=== PATIENT | male | born 1970 | race Caucasian/White ===

== ENCOUNTER 2016-04-08 10:50 | Observation (INO) | payer OTHER ==
[~2016-04-08] VITALS: Ht 185.4 cm; Wt 136.9 kg
[2016-04-08] VITALS (8 sets, daily range): BP systolic 107–164; BP diastolic 60–105; PULSE 54–67; RESP 12–18; O2SAT 96–100
[~2016-04-08 10:50] MED LIST: ALLO100T PO; AMPH20TA5 PO; CITA40TA PO; OMPR20CCR PO; SYN.1T2 PO
--- NOTE | 2016-04-08 11:02 | ED.REPORT ---
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 He also reports that the pain radiates into his back on the left side, and "clenching" neck and jaw pain while driving to the hospital today. Patient denies exacerbation or relief with any activities, family history of cardiac disease, and history of blood clots. He is a CCU nurse at the hospital here. Nursing Notes Stated Complaint: CHEST PAIN Chief Complaint: Chest Pain Nursing Notes Reviewed: Yes Allergies: Coded Allergies: No Known Drug Allergies (Verified Allergy, Unknown, 01/25/13) Scheduled Allopurinol-Expunged Drug, Do Not Renew! (Allopurinol-Expunged Drug, Do Not Renew!) 100 Mg Tablet 100 MG PO DAILY Citalopram-Expunged Drug, Do Not Renew! (Citalopram-Expunged Drug, Do Not Renew! ) 40 Mg Tablet 40 MG PO DAILY Levothyroxine-Expunged Drug, Do Not Renew! (Synthroid-Expunged Drug, Do Not Renew!) 100 Mcg Tablet 100 MCG PO DAILYAC 0.1 MG = 100 MCG Mixed Amphet-Expunged Drug, Do Not Renew! (Mixed Amphet-Expunged Drug, Do Not Renew!) 20 Mg Tablet 40 MG PO BID NO REFILLS ALLOWED Omeprazole-Expunged Drug, Do Not Renew! (Omeprazole-Expunged Drug, Do Not Renew! ) 20 Mg Capsule.dr 40 MG PO DAILY General Time Seen by MD: 11:01 Chief Complaint Chest pain Hx Obtained From: Patient Arrived By: Walk-in Sudden in Onset?: Yes Onset Occurred: 1 - 4 hours ago (10:15) Symptom Duration: Since onset Location: : Chest left Quality: Pressure ("crushing") Radiation: : Back: Jaw: Neck Severity: Current: Moderate Severity: Maximum: Moderate Pertinent Negative: Pt denies other symptoms Pertinent Negative: Exacerbated by nothing, Relieved by nothing Past Medical History Past Medical History Loren-Nino Syndrome Reports: Hyperlipidemia Smoking History Never Smoker Social History Other Social History: Good social support Ambulatory Status Independent Review of Systems Constitutional: Denies: Chills, Fever Respiratory: Denies: Non-productive cough, Shortness of breath Cardiovascular: Reports: Chest pain GI: Denies: Abdominal pain, Vomiting Musculoskeletal: Denies: Extremity pain, Extremity swelling Complete sys rev & neg: except as marked. Physical Exam Initial Vital Signs Vital Signs (First) Date Time Temp Pulse Resp B/P Pulse Ox O2 Delivery O2 Flow Rate FiO2 04/08/16 10:55 36.3 67 18 164/105 97 04/08/16 12:02 Nasal Cannula Initial VS: Reviewed Head / Eyes: Atraumatic, Normocephalic Neck: Supple, Non-tender, Full range of motion Extremities: Vascular intact, Neuro intact, No swelling, No tenderness Skin: Warm, Dry, No cyanosis Neurologic: Alert, Oriented, Nonfocal General/Constitutional: Awake, Alert, Well developed, Well nourished Appearance / Presentation: Positive: Obese Respiratory / Chest: Breath sounds NL, Breath sounds = bilat, No respiratory distress, No rales, No rhonchi, No wheezing, No stridor, No chest tenderness Cardiovascular: Heart rate NL, Regular rhythm, Heart sounds NL, No murmurs, Peripheral circulation NL, Pulses = bilaterally, No gross BP differential Good radial pulses. Abdomen: Soft, Non-tender, No guarding, No rebound, No distention Interpretation & Diagnostics Lab Results Interpretation Result Diagram: 04/08/16 1110 04/08/16 1110 Test 04/08/16 11:10 White Blood Count 9.9th/mm3 (3.8-10.1) Red Blood Count 4.83mil/mm3 (4.40-5.80) Hemoglobin 13.7g/dL (13.8-17.2) Hematocrit 41.4% (41.0-50.0) Mean Corpuscular Volume 85.7fL (81-100) Mean Corpuscular Hemoglobin 28.4pg (27.0-35.0) Mean Corpuscular Hemoglobin Concent 33.1% (32.0-37.0) Red Cell Distribution Width 14.7% (12.3-15.4) Platelet Count 298bil/L (150-400) Neutrophils (%) (Auto) 53.6% (40-74) Lymphocytes (%) (Auto) 31.3% (14-46) Monocytes (%) (Auto) 10.2% (4-12) Eosinophils (%) (Auto) 4.4% (0-5) Basophils (%) (Auto) 0.4% (0-3) D-Dimer < 0.5mg/L (<0.50) Sodium Level 139mEq/L (134-144) Potassium Level 4.1mEq/L (3.5-5.2) Chloride Level 102mEq/L (97-108) Carbon Dioxide Level 24mmol/L (18-29) Blood Urea Nitrogen 14mg/dL (6-24) Creatinine 1.21mg/dL (0.76-1.27) Estimat Glomerular Filtration Rate 69mL/min (>59) Glucose Level 92mg/dL (60-99) Calcium Level 9.1mg/dL (8.5-10.1) Magnesium Level 2.3mg/dL (1.6-2.6) Total Bilirubin 0.5mg/dL (0.0-1.2) Aspartate Amino Transf (AST/SGOT) 20U/L (0-50) Alanine Aminotransferase (ALT/SGPT) 19U/L (0-44) Alkaline Phosphatase 84U/L (25-150) Troponin T < 0.010ug/L (0.0-0.011) Total Protein 7.7g/dL (6.4-8.4) Albumin 4.0g/dL (3.4-5.0) Hold Blake Top Tube Received (Received) ECG Interpretation ECG Interpretation: Sinus rhythm Normal axis Normal intervals No ST segment changes Anteroseptal T wave inversions No prior ECG available for comparison Time: 11:08 Interpreted by: ED physician X-Ray Chest Interpretation Chest Xray Interpretation: IMPRESSION: Normal chest Dictated by: Mac Bejarano M.D. on 04/08/2016 at 11:22 Approved by: Mac Bejarano M.D. on 04/08/2016 at 11:23 View: Portable, 1 view Interpretation / Wet Read by: Interpret - Radiologist Re-Eval/Medical Decision Med Decision/Clinical Course In summary, the patient is a generally healthy 46-year-old male who presents to the emergency department with approximately 1 hour of crushing left sided substernal chest pain. He has no cardiac history. Upon arrival he is afebrile with stable vital signs and examination as above. Initial EKG demonstrates anterior T-wave inversions though there is no prior EKG available for comparison. Laboratory studies were notable as below: CBC unremarkable Chemistry unremarkable Troponin negative Patient was treated with the below medications ASA 324 mg by mouth Morphine NTG, sublingual Zofran The patient reported resolution of his chest pain with the above medications. I am reassured by initial negative troponin though T-wave inversions are concerning for possible ischemia. Given duration of chest pain I cannot rule out acute coronary syndrome at this time. The patient does not have any major risk factors. He does have some truncal obesity. Patient was discussed with cardiology as well as accepting hospitalist. He was transferred to the floor in stable condition with plan for additional cardiac risk stratification and serial troponin testing. Source of Hx: Old records Time of Eval: 11:47 Re-Evaluation/Progress Note: Discussed need for admission. Patient is amenable to the plan. Time of Eval: 12:41 Re-Evaluation/Progress Note: Discussed lab and radiology results and updated patient on the plan of care. Consultation #1: Referral / Consult Name: Ede Benoit DO Consulted With: Hospitalist Call Returned at: 12:18 [employer] Testing: Agrees with eval, Agrees with plan, Accepts admit Consultation #2: Consulted With: Cardiology Call Returned at: 12:18 Counseled Regarding: Diagnosis, Lab results, Need for admission Discharge & Departure Primary Impression: Chest pain Chest pain type: unspecified Qualified Code: R07.9 - Chest pain, unspecified Additional Impression: T wave inversion in EKG Disposition: ADMITTED TO HOSPITAL Discharge Condition All VS Reviewed: Yes Condition: Stable Referrals: Kinga Vasquez (PCP) Rosio Attestation Portions of this note were transcribed by Azar Yepez. I, Dr. Orourke, personally performed the history, physical exam and medical decision-making; I reviewed and confirmed the accuracy of the information in the transcribed note. Signed by: Rosio Rueda, 04/08/2016 and 12:42 copies to: Kinga Vasquez Beck O MD Apr 08, 2016 11:02 AZAR YEPEZ Apr 08, 2016 11:24
--- NOTE | 2016-04-08 11:24 | DRSVH ---
PROCEDURE: X-RAY CHEST ONE VIEW, PORTABLE ([id number]) INDICATIONS: pain TECHNIQUE: One view of the chest was acquired. COMPARISON: None. FINDINGS: Surgical changes and devices: None. Lungs and pleura: No pleural effusions or pneumothorax. Mild elevation right hemidiaphragm. Lungs ar e clear. Mediastinum: Mediastinal contours appear normal. Heart size is normal. Bones and chest wall: No suspicious bony lesions. Overlying soft tissues appear unremarkable. IMPRESSION: Normal chest Dictated by: Mac Bejarano M.D. on 04/08/2016 at 11:22 Approved by: Mac Bejarano M.D. on 04/08/2016 at 11:23
[2016-04-08 11:30] LABS: BASOPHILS % (AUTO) 0.4 % (0-3); EOSINOPHILS % (AUTO) 4.4 % (0-5); MONOCYTES % (AUTO) 10.2 % (4-12); Mean Corpuscular Hemoglobin 28.4 pg (27.0-35.0); Mean Corpuscular Volume 85.7 fL (81-100); NEUTROPHILS % (AUTO) 53.6 % (40-74); Platelet Count 298 bil/L (150-400)
[2016-04-08] MEDS ORDERED: Ondansetron 2 mg/mL 2 mL Inj IVPUSH ONE (11:50)
[2016-04-08 11:56] LABS: Magnesium 2.3 mg/dL (1.6-2.6)
[2016-04-08 12:07] LABS: TROPONIN T < 0.010 ug/L (0.0-0.011)
[2016-04-08] MEDS ORDERED: Polyethylene Glycol (PEG) 17 Gm Powder PO PRN (12:40)
[2016-04-08] MEDS ORDERED: Ondansetron 2 mg/mL 2 mL Inj IVPUSH PRN (12:40)
[2016-04-08] MEDS ORDERED: Alum-Mag Hydrox-Simeth 30 mL Suspension PO PRN (12:40)
[2016-04-08 13:33] LABS: Creatine Kinase 128 U/L (21-232)
[2016-04-08] MEDS ORDERED: COLC0.6T55 PO (14:44)
[2016-04-08] MEDS ORDERED: Atropine 1 mg/10 mL (Code) Syringe IVPUSH PRN (14:50)
[2016-04-08] MEDS ORDERED: Senna-Docusate 8.6-50 mg Tablet PO PRN (14:50)
[2016-04-08] MEDS ORDERED: CITA40TA13 PO (15:12)
[2016-04-08] MEDS ORDERED: ALLO300T2 PO (15:12)
[2016-04-08] MEDS ORDERED: LEVO100T6 PO (15:13)
[2016-04-08] MEDS ORDERED: OMEP40CA36 PO (15:16)
--- NOTE | 2016-04-08 15:18 | PCM.HPMED ---
Subjective Date of Service Apr 08, 2016 Primary Provider: Admitting Physician: Ede Benoit DO Primary Care Physician: Kinga Vasquez Attending Physician: Ede Benoit DO Chief Complaint: Chest pain History of Present Illness: Patient is a 46yom with MHx significant for obesity, sleep apnea, GERD, and Loren hewitt tear presents with left chest pain. Per patient, reports crushing, constant, 9/10 chest pain, radiating to the bilateral shoulder, unable to breath while in bed around 1000am today. Some dizziness, no lightheadedness, palpitation, or diaphoretic however. Pain slowly dissipate within 45min when he arrived at ED. Patient is fairly healthy at baseline. Denies any exertional chest pain. He was diagnosed with sleep apnea, but not on CPAP. He also admits to not being regular on his omeprazole. Denies any early cardiac deaths in the family. Review of Systems: A comprehensive review of systems was conducted with the patient and found to be negative except as above in the History of Present Illness. Allergies Coded Allergies: No Known Drug Allergies (Verified Allergy, Unknown, 01/25/13) Home Medications Per patient report Allopurinol 600mg BID citalopram 40mg daily colchicine 0.6mg prn levothyroxine 125mcg daily Adderall 40mg bid omeprazole 40mg BID PMH ADDHD GERD Loren hweitt tear Gout Hypothyroidism Depression Sleep apnea Surgical History Right Knee meniscal repair Family History Father ETOH No family hx of early cardiac related in the family Social History Hx Alcohol Use: Yes (occ) Hx Substance Use: No Hx Tobacco Use: No Smoking Status: Never Smoker Living Arrangement: with Family Exam Vital Signs Vital Sign - Last Date Time Temp Pulse Resp B/P Pulse Ox O2 Delivery O2 Flow Rate FiO2 04/08/16 14:21 36.6 54 18 124/79 97 Room Air 04/08/16 13:46 2 Exam Gen: Lying comfortably at 30degree head tilt HEENT: PERRLA, Anicteric sclerae, moist conjunctivae, and no lid lag. Neck: supple, no JVD Cardio: Regular rate and rhythm with no murmurs, rubs, or gallops appreciated Pulm: b/l air sound, no crackles, wheezes, or rhonchi. Normal respiratory effort with no use of accessory muscles. Abd: positive bowel tone. Soft, nontender, nondistended. Extremities: No clubbing, cyanosis, edema, or lymphadenopathy appreciated. Skin: Normal temperature, turgor, and texture; no rash, ulcers, or subcutaneous nodules appreciated. Neuro: Cranial nerves grossly intact. moving equally on all four limbs. Psyc: Normal mood and affect. AoX3 Lab and Diagnostics Result Diagram: 04/08/16 1110 04/08/16 1110 X-Rays, CTs and MRIs PROCEDURE: X-RAY CHEST ONE VIEW, PORTABLE INDICATIONS: pain IMPRESSION: Normal chest Dictated by: Mac Bejarano M.D. on 04/08/2016 at 11:22 12-lead ECG EKG with normal sinus, inverted Twave on Lead V1-4 Assessment & Plan Patient is a 46yom with MHx significant for obesity, sleep apnea, GERD, and Loren hewitt tear presented with left chest pain, admitted for ACS r/o. ACS, present on admission, active -- EKG with inverted T-wave. unremarkable Crx, D-dimer negative -- non-anginal chest pain from history. likely GERD related. Though, still carries a 13% risk -- placed on aspirin. consider Trever-I with hypertension. no betablocade. patient bradycardic. -- Echo pending -- Troponin, lipids, TSH pending Hypothyroidism, present on admission, ongoing -- TSH pending -- restarted home levothyroxine ROHAN, present on admission, ongoing -- monitor HR/O2 sat -- CPAP should patient desat, bradycardic Hypertension, present on admission, active -- hypertensive on admission. -- may start trever-i should BP trend upward. Chronic stable GERD: ppi Depression: citalopram DVT prophylaxis: heparin subQ Antipyretic: Acetaminophen PRN Antinausea: Ondansetron PRN Bowel regiment PRN Patient is admitted under observation status with expected length of stay LESS than 2 midnights due to severity of presenting symptoms, risk of adverse event, and complexity of treatment plan. GI Prophylaxis: Proton Pump Inhibitor VTE Prophylaxis: Sub-Q Heparin (Unfractionated) Resuscitation Status: CPR: Attempt Resuscitation Time spent 50 minutes Attending Statement I have seen and evaluated patient in addition to directly supervising care provided by resident. I agree with above documentation. Though pt had few risk factors, given echocardiogram results, cardiac stress testing will be pursued. Rajiv Eagel DO Apr 08, 2016 15:18 Ede Benoit DO Apr 09, 2016 07:54
[2016-04-08] MEDS ORDERED: DEXT20TA8 PO (15:20)
--- NOTE | 2016-04-08 15:31 | NUR ---
Admit Pt admitted from ED to [facility] room 3030, report received from Patience Starkey RN. Pt was able to transfer self to bed, steady gait observed. Denies CP and SOB. A/O x 3, VSS, pt is hard of hearing, awaiting hearing aides from home.
[2016-04-08] MEDS: Heparin 5,000 Unit/mL Inj SUBQ SCH (17:41)
[2016-04-08] MEDS: Pantoprazole 20 mg ER24 Tablet PO SCH ×2 (17:50→20:30)
--- NOTE | 2016-04-08 18:20 | DRSVH ---
[facility] [address] [place] [address] Echocardiogram Report Name: JOSEFINA ANDRADE SStudy Date: 04/08/2016 Height: 73 in Hospital Exam Location: [facility] Weight: 300 lb Gender: Male BSA: 2.6 m2 : 1970 Age: 46 yrs BP: 141/84 mmHg Ordering Physician: Performed By: Jose Weeks Referring Physician: KAT STOVALL Interpretation Summary Left ventricular wall thickness is borderline increased. The ejection fraction is estimated to be 60-65%. There is possible very mild hypokinesis in the area of the inferior wall. Consider ischemic workup if not highly suspicious for angina. The right ventricle is normal in size, thickness and function. Right ventricular systolic pressure is estimated to be 19 mmHg plus the clinically estimated CVP which cannot be estimated on this exam. Both atria are normal in size. There is no significant valvular heart disease. The ascending aorta is mildly enlarged. Procedure: A two-dimensional transthoracic echocardiogram with color flow and Doppler was performed. The study quality was technically adequate. A contrast injection of Definity was performed to improve assessment of LV function. There is no prior echocardiogram noted for this patient. The patient was in sinus bradycardia with heart rates between 52-72 bpm during the exam. Left Ventricle: The left ventricle is normal in size. Left ventricular wall thickness is borderline increased. The ejection fraction is estimated to be 60-65%. There is possible very mild hypokinesis in the area of the inferior wall. Consider ischemic workup if not highly suspicious for angina. Assessment of diastolic parameters indicates normal left ventricular diastolic function and normal filling pressures. Right Ventricle: The right ventricle is normal in size, thickness and function. Atria: Both atria are normal in size. The interatrial septum is intact with no evidence for an atrial septal defect. Mitral Valve: The mitral valve is normal. There is trace mitral regurgitation. Aortic Valve: The aortic valve is normal in structure and function. No aortic regurgitation is present. Tricuspid Valve: The tricuspid valve is normal. There is a trace or physiologic amount of tricuspid regurgitation. Right ventricular systolic pressure is estimated to be 19 mmHg plus the clinically estimated CVP which cannot be estimated on this exam. Pulmonic Valve: The pulmonic valve leaflets are thin and pliable; valve motion is normal. There is a trace or physiologic amount of pulmonic regurgitation. There is no significant valvular heart disease. Great Vessels: The aortic root is normal size. The ascending aorta is mildly enlarged. The pulmonary artery is normal size. The inferior vena cava was not well visualized. Pericardium/ Pleura There is no pericardial effusion. There is no pleural effusion. MMode/2D Measurements & Calculations LVIDd: 5.3 cm RA long axis LVOT diam: 2.4 cm LVIDs: 4.0 cm LA A2 area: 18.7 cm AoV Opening FS: 24.3 % LA A4 area: 25.9 cm RA area EPSS: 0.50 cm LA length (vol) Ao root diam IVSd: 1.1 cm : 17.1 cm LVPWd: 0.99 cm LA vol: 70.9 ml RA vol asc Aorta Diam LA vol index : 43.6 ml RA Ao Arch Diam (Prox : 27.7 ml/m2 : 17.1 mm2 Trans): 2.9 cm LV brown. diameter/BSA LV sys. diameter/BSA RVD1 (basal) TAPSE: 2.6 cm (cm/m^2): 2.1 (cm/m^2): 1.6 Doppler Measurements & Calculations Ao V2 max MV E max faisal MV E/A: 1.1 TR max faisal : 151.7 cm/sec : 90.1 cm/sec Med Peak E' Faisal : 218.5 cm/sec Ao max P.2 mmHg MV A max faisal TR max PG Ao mean P.1 mmHg : 81.3 cm/sec E/E' med: 12.6 : 19.1 mmHg LVOT Max Faisal Lat Peak E' Faisal PA V2 max : 125.0 cm/sec : 98.6 cm/sec E/E' lat: 8.2 PA mean PG SACHIN(I,D): 3.8 cm E/e' average : 2.1 mmHg sev ratio: 0.85 MV dec time: 0.22 sec Ao V2 mean LV V1 max PG PA V2 mean : 107.6 cm/sec : 70.2 cm/sec Ao V2 VTI: 30.4 cmLV V1 VTI: 25.9 cm PA pr(Accel) : 47.4 mmHg SACHIN(V,D): 3.6 cm2 SACHIN indexed to BSA (cm^2/m^2): 1.5 Reading Physician:PM
[2016-04-09] MEDS: Heparin 5,000 Unit/mL Inj SUBQ SCH ×2 (01:21→07:57)
[2016-04-09 01:23] VITALS: BP 102/65; PULSE 55; RESP 18; O2SAT 97
[2016-04-09 05:21] VITALS: BP 111/70; PULSE 57; RESP 18; O2SAT 98
[2016-04-09 06:48] LABS: Mean Corpuscular Hemoglobin 28.4 pg (27.0-35.0); Mean Corpuscular Volume 85.8 fL (81-100)
[2016-04-09] MEDS: Pantoprazole 20 mg ER24 Tablet PO SCH (07:56)
--- NOTE | 2016-04-09 09:32 | NUR ---
OFF Floor Pt off floor for stress test.
--- NOTE | 2016-04-09 11:00 | PCM.DIMED ---
Rajiv Eagle DO 04/09/16 1100: Discharge Instructions Date of Service Apr 09, 2016 Dates of Hospitalization Apr 08, 2016 at 12:49 Discharge Diagnosis Discharge Diagnosis ACS, present on admission, stable Hypothyroidism, present on admission, ongoing ROHAN, present on admission, ongoing Hypertension, present on admission, active Chronic stable GERD: ppi Depression: citalopram Diet Heart Healthy Activity Home Health Phyical Therapy Call your provider Chest pain, Weakness (unilateral) Patient Instructions For your stay, you were admitted for ACS ruled out based on EKG findings (Twave inversion) and symptoms. Troponin were negative. However, Echocardiogram possible inferior wall motion abnormality. Therefore, we are risk stratifying you. Stressed testing unremarkable. Acute coronary syndrome, present on admission, stable -- Recommend that you take a statin and baby aspirin daily -- Weight lost will reduce your risks of heart disease -- Portion control, limit your Mountain Dew Hypothyroidism, present on admission, ongoing -- Your T4 are on the low end of normal -- Please take your medication as scheduled ROHAN, present on admission, ongoing -- Recommend that you see a sleep specialist to possibly CPAP. --This can reduce your weight lost Mild normocytic anemia, present on admission, ongoing --possibly related to your hemorrhoids, vs other causes. GI being the most worrisome --recommend that you have this work-up outpatient GERD, present on admission, ongoing --Please continue your proton pump inhibitor Follow-up Provider: Kinga Vasquez Follow-up with PCP in: 1 week dEe Benoit DO 04/09/16 1450: Discharge Instructions Attending's Statement I have reviewed resident physician's documentation and agree with above. Rajiv Eagle DO Apr 09, 2016 11:00 Ede Benoit DO Apr 09, 2016 14:50
--- NOTE | 2016-04-09 11:24 | NUR ---
Social Work-screening: Data:EMR Reviewed. Pt is a 46 y/o male who was admitted on 04/08/16 for chest pain per H&P. Pt's insurance is [employer] and PCP is DAVID Lester. EMR reviewed. Pt resides at home where he remains independent with ADLS. Pt has been up independent in his room. Pt to have stress test today, if negative pt to discharge home today. No anticipated discharge needs. SW will continue to follow if needs arise. Assessment:Pt who is independent at baseline. Plan:Pt to discharge home when medically stable via POV. No anticipated discharge needs. SW will continue to follow if needs arise. SRINIVASAN Delgado
[2016-04-09 12:40] VITALS: BP 115/72; PULSE 64; RESP 18; O2SAT 97
--- NOTE | 2016-04-09 14:02 | DRSVH ---
PROCEDURE: 1 DAY PHARMACOLOGICAL STRESS TEST Rest and pharmacological stress myocardial perfusion SPECT with gated imaging and ejection fraction RADIOPHARMACEUTICAL: 14.8 mCi Tc-99m tetrafosmin IV at rest and 46.1 mCi Tc-99m tetrafosmin IV at pea k effect of pharmacological stress. A [id number] was performed. INDICATIONS: 46-year-old man with chest pain. TECHNIQUE: Radiopharmaceutical was injected at peak stress test, and also at rest. SPECT images wer e obtained. SPECT myocardial perfusion images were displayed in short axis, horizontal long axis, an d vertical long axis views. Gated images were reviewed using [employer] software. COMPARISON: None. CARDIAC STRESS: A pharmacologic stress test was performed under the supervision of an attending staff, using an infus ion of Lexiscan. Hemodynamic data: There is normal blood pressure and heart rate response to pharmacologic stress. Symptoms: The patient developed left-side chest pain, 6/10 in severity, improved after Aminophyllin. Aminophylline: 100 mg EKG: No diagnostic changes of ischemia; no ectopy. FINDINGS: Raw data: There is good myocardial uptake of radiotracer. No significant motion artifacts. Left ventricle function: Gated images demonstrate normal left ventricular wall thickening. No segme ntal wall motion abnormalities. No transient ischemic dilation. Left ventricle resting end diastoli c volume is normal. Left ventricle stress ejection fraction is 65%; normal range is above 45%. Myocardial perfusion: There is a small, mild/moderate severe, fixed perfusion defect in the apex, mo st likely normal apical thinning. There is otherwise normal distribution of activity in the right and left ventricular myocardium. No reversible perfusion defects to suggest myocardial ischemia. IMPRESSION: 1. Probably normal myocardial perfusion images. 2. A small, mild to moderately severe, fixed defect in the apex is most likely caused by apical thinn ing. A small myocardial infarction is felt less likely. 3. Normal left ventricular volume and systolic function. 4. The patient expressed chest pain during Lexiscan infusion. Chest pain with resolved after Aminophy llin reversal. No diagnostic EKG changes for ischemia. PQRS ATTESTATIONS: Measure 322 - Is this imaging test primarily performed on a low-risk surgery patient for preoperative evaluation within 30 days preceding their low-risk non-cardiac surgery? Low-risk surgery is defined as cardiac or myocardial infarction less than 1%, including (but not limited to) endoscopic pr ocedures, superficial procedures, cataract surgery, and excisional breast surgery: Answer: No Measure 323 - Is this imaging test performed primarily for the monitoring of an asymptomatic patient who had percutaneous coronary intervention on the visit date or within 2 years of the visit date? An swer: No Measure 324 - Is this imaging test performed primarily for the initial detection and risk assessment on an asymptomatic, low coronary heart disease patient? Low CHD risk definition = clinicians should consider the maximum number of available patient factors used to estimate risk based on [place] (A TP III criteria), typically age, gender, diabetes, smoking status, and use of blood pressure medicati on, and integrate age appropriate estimates for missing elements, such as LDL or standard blood press ure. Answer: No Dictated by: Luis Sam M.D. on 04/09/2016 at 13:52 Approved by: Luis Sam M.D. on 04/09/2016 at 14:01
--- NOTE | 2016-04-09 15:10 | NUR ---
Social Work-discharge: Data:EMR reviewed. Pt is on day 1 of hospitalization for chest pain. Pt is medically stable to discharge home today. Pt has been up independent in his room. No anticipated discharge needs. SW will continue to follow if needs arise. Assessment:Pt who is independent at baseline. Plan:Pt to discharge home when medically stable via POV. No anticipated discharge needs. SW will continue to follow if needs arise. SRINIVASAN Delgado
[2016-04-09] MEDS ORDERED: TRAM-14 PO (15:56)
--- NOTE | 2016-04-09 16:02 | NUR ---
Discharge Pt discharged to home with girlfriend via private vehicle. Pt verbalized understanding of discharge instructions, personal belongings accounted for and left with pt.
--- NOTE | 2016-04-09 18:27 | PCM.DC.MED ---
Discharge Summary Date of Service Apr 09, 2016 Dates of Hospitalization Date of Hospital Admission Apr 08, 2016 at 12:49 Date of Discharge: Apr 09, 2016 Providers: Admitting Physician: Ede Benoit DO Primary Care Physician: Kinga Vasquez Attending Physician: Ede Benoit DO Diagnosis at Time of Discharge Diagnosis at Time of Discharge ACS, present on admission, stable Hypothyroidism, present on admission, ongoing ROHAN, present on admission, ongoing Hypertension, present on admission, active Mild normocytic anemia, present on admission, ongoing Chronic stable GERD: ppi Depression: citalopram Procedures XRay, CTs & MRIs PROCEDURE: X-RAY CHEST ONE VIEW, PORTABLE INDICATIONS: pain IMPRESSION: Normal chest Interpretation Summary Left ventricular wall thickness is borderline increased. The ejection fraction is estimated to be 60-65%. There is possible very mild hypokinesis in the area of the inferior wall. Consider ischemic workup if not highly suspicious for angina. The right ventricle is normal in size, thickness and function. Right ventricular systolic pressure is estimated to be 19 mmHg plus the clinically estimated CVP which cannot be estimated on this exam. Both atria are normal in size. There is no significant valvular heart disease. The ascending aorta is mildly enlarged. Patient Name: JOSEFINA ANDRADE MR#: [id number] Location: [facility] Ordering Phys: Rajiv Eagle DO Date of Service: 04/09/16 0641 PROCEDURE: 1 DAY PHARMACOLOGICAL STRESS TEST Rest and pharmacological stress myocardial perfusion SPECT with gated imaging and ejection fraction RADIOPHARMACEUTICAL: 14.8 mCi Tc-99m tetrafosmin IV at rest and 46.1 mCi Tc-99m tetrafosmin IV at peak effect of pharmacological stress. A vss-ewo-aumzkvau was performed. INDICATIONS: 46-year-old man with chest pain. TECHNIQUE: Radiopharmaceutical was injected at peak stress test, and also at rest. SPECT images were obtained. SPECT myocardial perfusion images were displayed in short axis, horizontal long axis, and vertical long axis views. Gated images were reviewed using [employer] software. COMPARISON: None. CARDIAC STRESS: A pharmacologic stress test was performed under the supervision of an attending staff, using an infusion of Lexiscan. Hemodynamic data: There is normal blood pressure and heart rate response to pharmacologic stress. Symptoms: The patient developed left-side chest pain, 6/10 in severity, improved after Aminophyllin. Aminophylline: 100 mg EKG: No diagnostic changes of ischemia; no ectopy. FINDINGS: Raw data: There is good myocardial uptake of radiotracer. No significant motion artifacts. Left ventricle function: Gated images demonstrate normal left ventricular wall thickening. No segmental wall motion abnormalities. No transient ischemic dilation. Left ventricle resting end diastolic volume is normal. Left ventricle stress ejection fraction is 65%; normal range is above 45%. Myocardial perfusion: There is a small, mild/moderate severe, fixed perfusion defect in the apex, most likely normal apical thinning. There is otherwise normal distribution of activity in the right and left ventricular myocardium. No reversible perfusion defects to suggest myocardial ischemia. IMPRESSION: 1. Probably normal myocardial perfusion images. 2. A small, mild to moderately severe, fixed defect in the apex is most likely caused by apical thinning. A small myocardial infarction is felt less likely. 3. Normal left ventricular volume and systolic function. 4. The patient expressed chest pain during Lexiscan infusion. Chest pain with resolved after Aminophyllin reversal. No diagnostic EKG changes for ischemia. PQRS ATTESTATIONS: Measure 322 - Is this imaging test primarily performed on a low-risk surgery patient for preoperative evaluation within 30 days preceding their low-risk non- cardiac surgery? Low-risk surgery is defined as cardiac or myocardial infarction less than 1%, including (but not limited to) endoscopic procedures, superficial procedures, cataract surgery, and excisional breast surgery: Answer : No Measure 323 - Is this imaging test performed primarily for the monitoring of an asymptomatic patient who had percutaneous coronary intervention on the visit date or within 2 years of the visit date? Answer: No Measure 324 - Is this imaging test performed primarily for the initial detection and risk assessment on an asymptomatic, low coronary heart disease patient? Low CHD risk definition = clinicians should consider the maximum number of available patient factors used to estimate risk based on Huntington ( ATP III criteria), typically age, gender, diabetes, smoking status, and use of blood pressure medication, and integrate age appropriate estimates for missing elements, such as LDL or standard blood pressure. Answer: No Dictated by: Luis Sam M.D. on 04/09/2016 at 13:52 ECG 12 Lead EKG with normal sinus, inverted Twave on Lead V1-4 Other Diagnostics PROCEDURE: 1 DAY PHARMACOLOGICAL STRESS TEST Rest and pharmacological stress myocardial perfusion SPECT with gated imaging and ejection fraction RADIOPHARMACEUTICAL: 14.8 mCi Tc-99m tetrafosmin IV at rest and 46.1 mCi Tc-99m tetrafosmin IV at peak effect of pharmacological stress. A rzp-coa-otyhlzkt was performed. INDICATIONS: 46-year-old man with chest pain. TECHNIQUE: Radiopharmaceutical was injected at peak stress test, and also at rest. SPECT images were obtained. SPECT myocardial perfusion images were displayed in short axis, horizontal long axis, and vertical long axis views. Gated images were reviewed using [employer] software. COMPARISON: None. CARDIAC STRESS: A pharmacologic stress test was performed under the supervision of an attending staff, using an infusion of Lexiscan. Hemodynamic data: There is normal blood pressure and heart rate response to pharmacologic stress. Symptoms: The patient developed left-side chest pain, 6/10 in severity, improved after Aminophyllin. Aminophylline: 100 mg EKG: No diagnostic changes of ischemia; no ectopy. FINDINGS: Raw data: There is good myocardial uptake of radiotracer. No significant motion artifacts. Left ventricle function: Gated images demonstrate normal left ventricular wall thickening. No segmental wall motion abnormalities. No transient ischemic dilation. Left ventricle resting end diastolic volume is normal. Left ventricle stress ejection fraction is 65%; normal range is above 45%. Myocardial perfusion: There is a small, mild/moderate severe, fixed perfusion defect in the apex, most likely normal apical thinning. There is otherwise normal distribution of activity in the right and left ventricular myocardium. No reversible perfusion defects to suggest myocardial ischemia. IMPRESSION: 1. Probably normal myocardial perfusion images. 2. A small, mild to moderately severe, fixed defect in the apex is most likely caused by apical thinning. A small myocardial infarction is felt less likely. 3. Normal left ventricular volume and systolic function. 4. The patient expressed chest pain during Lexiscan infusion. Chest pain with resolved after Aminophyllin reversal. No diagnostic EKG changes for ischemia. Brief History Patient is a 46yom with MHx significant for obesity, sleep apnea, GERD, and Loren hewitt tear presents with left chest pain. Per patient, reports crushing, constant, 9/10 chest pain, radiating to the bilateral shoulder, unable to breath while in bed around 1000am today. Some dizziness, no lightheadedness, palpitation, or diaphoretic however. Pain slowly dissipate within 45min when he arrived at ED. Patient is fairly healthy at baseline. Denies any exertional chest pain. He was diagnosed with sleep apnea, but not on CPAP. He also admits to not being regular on his omeprazole. Denies any early cardiac deaths in the family. Hospital Course Patient is a 46yom with MHx significant for obesity, sleep apnea, GERD, and Loren hewitt tear presented with left chest pain, admitted for ACS ruled out based on EKG findings (Twave inversion) and symptoms. Troponin were negative. However, Echocardiogram possible inferior wall motion abnormality. Therefore, we stratify. Stressed testing unremarkable. ACS, present on admission, active -- EKG with inverted T-wave. unremarkable Crx, D-dimer negative -- non-anginal chest pain from history. likely GERD related. Though, still carries a 13% risk -- placed on aspirin. consider Trever-I with hypertension. no betablocade. patient bradycardic. -- Echo mild hypokinese of inferior wall, prompted NM stress testing, which demonstrated no perfusion defects. -- Recommend that patient lose weight. No need for statin at this time based on AHA. Hypothyroidism, present on admission, ongoing -- TSH/T4 3.65/0.94, non-compliance to medication -- restarted home levothyroxine ROHAN, present on admission, ongoing -- monitor HR/O2 sat -- CPAP should patient desat, bradycardic -- Recommend sleep study. Hypertension, present on admission, active -- hypertensive on admission. -- may start trever-i should BP trend upward. Chronic stable GERD: ppi Depression: citalopram Exam Vital Signs (Last) Date Time Temp Pulse Resp B/P Pulse Ox O2 Delivery O2 Flow Rate FiO2 04/09/16 12:40 36.8 64 18 115/72 97 Room Air 04/08/16 13:46 2 Test 04/08/16 11:10 04/08/16 23:01 04/09/16 05:55 Neutrophils (%) (Auto) 53.6% (40-74) Lymphocytes (%) (Auto) 31.3% (14-46) Monocytes (%) (Auto) 10.2% (4-12) Eosinophils (%) (Auto) 4.4% (0-5) Basophils (%) (Auto) 0.4% (0-3) D-Dimer < 0.5mg/L (<0.50) Hemoglobin A1c 6.3% (4.8-5.6) Magnesium Level 2.3mg/dL (1.6-2.6) Total Bilirubin 0.5mg/dL (0.0-1.2) Aspartate Amino Transf (AST/SGOT) 20U/L (0-50) Alanine Aminotransferase (ALT/SGPT) 19U/L (0-44) Alkaline Phosphatase 84U/L (25-150) Total Creatine Kinase 128U/L (21-232) Creatine Kinase MB 1.2ng/mL (0.0-10.4) Creatine Kinase MB % % (0.0-5.0) Total Protein 7.7g/dL (6.4-8.4) Albumin 4.0g/dL (3.4-5.0) Hold Blake Top Tube Received (Received) Troponin T < 0.010ug/L (0.0-0.011) White Blood Count 8.5th/mm3 (3.8-10.1) Red Blood Count 4.64mil/mm3 (4.40-5.80) Hemoglobin 13.2g/dL (13.8-17.2) Hematocrit 39.8% (41.0-50.0) Mean Corpuscular Volume 85.8fL (81-100) Mean Corpuscular Hemoglobin 28.4pg (27.0-35.0) Mean Corpuscular Hemoglobin Concent 33.2% (32.0-37.0) Red Cell Distribution Width 14.4% (12.3-15.4) Platelet Count 270bil/L (150-400) Sodium Level 141mEq/L (134-144) Potassium Level 4.4mEq/L (3.5-5.2) Chloride Level 102mEq/L (97-108) Carbon Dioxide Level 28mmol/L (18-29) Blood Urea Nitrogen 12mg/dL (6-24) Creatinine 1.25mg/dL (0.76-1.27) Estimat Glomerular Filtration Rate 67mL/min (>59) Glucose Level 102mg/dL (60-99) Calcium Level 8.9mg/dL (8.5-10.1) Triglycerides Level 116mg/dL (0-149) Cholesterol Level 143mg/dL (100-199) LDL Cholesterol, Calculated 89.800mg/dL (0-99) VLDL Cholesterol 23.200mg/dL HDL Cholesterol 30mg/dL (>39) Cholesterol/HDL Ratio 4.77 (0.0-4.4) Thyroid Stimulating Hormone (TSH) 3.650uIU/mL (0.450-4.500) Free Thyroxine 0.94ng/dL (0.82-1.77) Discharge Medications Discharge Medications Allopurinol (Allopurinol) 300 Mg Tablet 600 MG PO BID (Reported) Citalopram (Citalopram) 40 Mg Tablet 40 MG PO DAILY (Reported) Dextroamphetamine/Amphetamine (Amphetamine Mixed Salts) 20 Mg Tablet 40 MG PO BID (Reported) Levothyroxine (Levothyroxine) 100 Mcg Tablet 100 MCG PO dailyac (Reported) Omeprazole (Omeprazole) 40 Mg Capsule.dr 40 MG PO BID (Reported) As needed Colchicine (Colchicine) 0.6 Mg Tablet 0.6 MG PO PRN gout outbreak (Reported) Tramadol (Ultram) 50 Mg Tablet 50 MG PO Q4H PRN PRN For Mild Pain Prescribed by: EDE BENOIT,DO Followup Plan Discharge Diet: Heart Healthy Discharge Activity: Home Health Phyical Therapy Patient Instructions For your stay, you were admitted for ACS ruled out based on EKG findings (Twave inversion) and symptoms. Troponin were negative. However, Echocardiogram possible inferior wall motion abnormality. Therefore, we are risk stratifying you. Stressed testing unremarkable. Acute coronary syndrome, present on admission, stable -- Recommend that you take a statin and baby aspirin daily -- Weight lost will reduce your risks of heart disease -- Portion control, limit your Mountain Dew Hypothyroidism, present on admission, ongoing -- Your T4 are on the low end of normal -- Please take your medication as scheduled ROHAN, present on admission, ongoing -- Recommend that you see a sleep specialist to possibly CPAP. --This can reduce your weight lost Mild normocytic anemia, present on admission, ongoing --possibly related to your hemorrhoids, vs other causes. GI being the most worrisome --recommend that you have this work-up outpatient GERD, present on admission, ongoing --Please continue your proton pump inhibitor Follow-up Provider: Kinga Vasquez Follow-up with PCP in: 1 week Time spent 50 minutes Attending Statement I have seen and evaluated patient at bedside, in addition to directly supervising care provided by resident physician. I agree with above documentation. Though it was not felt formal in patient cardilogy consultation indicated based on study results, case was reviewed with firer diesel locomotive mine environmental engineer , Dr Christie. She felt given no evidence of ACS or reversible ischemia, DC home certainly prudent , but also agreed to close FU with patient once DC'd to review condition and consider more chronic underlying conditions maybe effecting heart, especially should episodes of chest pains not resolve. She will out reach patient for scheduling likely early next week. copies to: Kinga Vasquez Phuc H DO Apr 09, 2016 18:27 Ede Benoit DO Apr 10, 2016 07:58
[2016-06-03] MEDS ORDERED: LEVO125T2 PO (17:47)
[2016-06-03] MEDS ORDERED: AMPH20TA5 PO (17:47)
[2016-06-03] MEDS ORDERED: WARF4TAB6 PO (17:47)
== END 2016-04-09 16:06 | disposition home or self-care (01) ==
LOC: SED 11:14 → MPC 12:49
PROVIDERS: ADMIT Family Medicine; ATTEND Family Medicine
DX: I24.9 Acute ischemic heart disease, unspecified (principal); E03.9 Hypothyroidism, unspecified; G47.33 Obstructive sleep apnea (adult) (pediatric); I10 Essential (primary) hypertension; D64.9 Anemia, unspecified; K21.9 Gastro-esophageal reflux disease without esophagitis; F32.9 Major depressive disorder, single episode, unspecified; E66.9 Obesity, unspecified; F90.9 Attention-deficit hyperactivity disorder, unspecified type; M10.9 Gout, unspecified; E78.5 Hyperlipidemia, unspecified
CPT/HCPCS: 36415; 71010; 78452; 80048; 80053; 80061; 82550; 82553; 83036; 83735; 84439; 84443; 84484; 85025; 85027; 85379; 93005; 93017; 96374; 96375; 99285; A9502; C8929; G0378; J0280; J1644; J2270; J2405; J2785; Q9957

== ENCOUNTER 2016-04-30 07:26 | Emergency (ER) | payer OTHER ==
[~2016-04-30] VITALS: Ht 185.4 cm; Wt 136.8 kg
[~2016-04-30 07:26] MED LIST changes: -ALLO100T PO; +ALLO300T2 PO; -AMPH20TA5 PO; -CITA40TA PO; +CITA40TA13 PO; +COLC0.6T55 PO; +DEXT20TA8 PO; +LEVO100T6 PO; +OMEP40CA36 PO; -OMPR20CCR PO; -SYN.1T2 PO; +TRAM-14 PO
[2016-04-30 07:35] VITALS: BP 133/99; PULSE 146; RESP 18; O2SAT 100
--- NOTE | 2016-04-30 08:09 | ED.REPORT ---
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 He woke up this morning at 0645 with a racing heart rate, chest pressure and noticed his chest "fluttering." He describes that he tried to test his pulse but it was very weak. He denies SOB. He was recently seen at [facility] with severe chest pain, had an echocardiogram and a MIBI that revealed no acute ischemia. 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 Nursing Notes Stated Complaint: POUNDING IN CHEST Chief Complaint: Chest Pain Nursing Notes Reviewed: Yes Allergies: Coded Allergies: No Known Drug Allergies (Verified Allergy, Unknown, 01/25/13) Scheduled Allopurinol (Allopurinol) 300 Mg Tablet 600 MG PO BID Citalopram (Citalopram) 40 Mg Tablet 40 MG PO DAILY Dextroamphetamine/Amphetamine (Amphetamine Mixed Salts) 20 Mg Tablet 40 MG PO BID Levothyroxine (Levothyroxine) 100 Mcg Tablet 100 MCG PO dailyac Omeprazole (Omeprazole) 40 Mg Capsule.dr 40 MG PO BID Scheduled PRN Colchicine (Colchicine) 0.6 Mg Tablet 0.6 MG PO PRN gout outbreak Tramadol (Ultram) 50 Mg Tablet 50 MG PO Q4H PRN PRN For Mild Pain General Time Seen by MD: 07:50 Chief Complaint Chest pain Hx Obtained From: Patient Arrived By: Walk-in Sudden in Onset?: Yes Onset Occurred: Just prior to arrival Symptom Duration: Since onset Location: : Chest left Radiation: : Does not radiate Severity: Current: Mild Recent Healthcare: Recent doctor visit Similar Sx Previous: Yes Past Medical History Past Medical History Loren-Nino Syndrome Reports: Hyperlipidemia Past Surgical History denies Smoking History Never Smoker Social History CC nurse at [employer] Other Social History: Good social support Ambulatory Status Independent Review of Systems Respiratory: Denies: Shortness of breath Cardiovascular: Reports: Chest pain Complete sys rev & neg: except as marked. Physical Exam Initial Vital Signs Vital Signs (First) Date Time Temp Pulse Resp B/P Pulse Ox O2 Delivery O2 Flow Rate FiO2 04/30/16 07:35 36.8 146 18 133/99 100 Room Air Initial VS: Reviewed Head / Eyes: Atraumatic, Normocephalic, PERRL ENT: Mucous membranes moist, Conjunctiva normal, No scleral icterus Neck: Supple, Non-tender, Full range of motion Back: No CVA tenderness Extremities: Vascular intact, Neuro intact, No swelling, No tenderness Skin: Warm, Dry, No cyanosis Neurologic: Alert, Oriented, Nonfocal Psychiatric: Mood/affect normal, Behavior normal, Normal thought content General/Constitutional: Awake, Alert, No acute distress, Well appearing Appearance / Presentation: Positive: Obese well profused Respiratory / Chest: Atraumatic, Breath sounds NL, Breath sounds = bilat, No respiratory distress, No rales, No rhonchi, No wheezing, No retractions Cardiovascular: No gallop, No murmurs, No rubs atrial flutter Abdomen: Atraumatic, Soft, Non-tender, No guarding, No rebound, BS normoactive Interpretation & Diagnostics Lab Results Interpretation Result Diagram: 04/30/16 0815 04/30/16 0815 Test 04/30/16 08:15 White Blood Count 8.5th/mm3 (3.8-10.1) Red Blood Count 5.13mil/mm3 (4.40-5.80) Hemoglobin 14.6g/dL (13.8-17.2) Hematocrit 43.2% (41.0-50.0) Mean Corpuscular Volume 84.2fL (81-100) Mean Corpuscular Hemoglobin 28.5pg (27.0-35.0) Mean Corpuscular Hemoglobin Concent 33.8% (32.0-37.0) Red Cell Distribution Width 14.7% (12.3-15.4) Platelet Count 299bil/L (150-400) Neutrophils (%) (Auto) 48.9% (40-74) Lymphocytes (%) (Auto) 32.4% (14-46) Monocytes (%) (Auto) 9.3% (4-12) Eosinophils (%) (Auto) 8.2% (0-5) Basophils (%) (Auto) 0.7% (0-3) Sodium Level 139mEq/L (134-144) Potassium Level 4.5mEq/L (3.5-5.2) Chloride Level 101mEq/L (97-108) Carbon Dioxide Level 25mmol/L (18-29) Blood Urea Nitrogen 13mg/dL (6-24) Creatinine 1.13mg/dL (0.76-1.27) Estimat Glomerular Filtration Rate 75mL/min (>59) Glucose Level 133mg/dL (60-99) Calcium Level 8.8mg/dL (8.5-10.1) Magnesium Level 1.9mg/dL (1.6-2.6) Total Bilirubin 0.3mg/dL (0.0-1.2) Aspartate Amino Transf (AST/SGOT) 18U/L (0-50) Alanine Aminotransferase (ALT/SGPT) 22U/L (0-44) Alkaline Phosphatase 86U/L (25-150) Troponin T 0.010ug/L (0.0-0.011) Total Protein 7.0g/dL (6.4-8.4) Albumin 3.8g/dL (3.4-5.0) Hold Blake Top Tube Received (Received) ECG Interpretation ECG Interpretation: atrial flutter Time: 07:43 Interpreted by: ED physician Rhythm / Conduction: Tachycardia (147) ECG Interpretation: post cardioversion Time: 12:05 Interpreted by: ED physician Normal ECG Interpretation: Normal sinus rhythm (76) X-Ray Chest Interpretation Chest Xray Interpretation: IMPRESSION: No acute cardiopulmonary disease. Dictated by: Doe Jennings RRA Interpreted: Mitchell Brown MD on 04/30/2016 at 10:16 Transcribed by: ADELAIDA on 04/30/2016 at 10:16 View: Portable Interpretation / Wet Read by: Interpret - Radiologist Procedures Electrical Cardioversion Time: 12:00 Procedure Performed by: ED physician Indication: Atrial fibrillation Consent / Setup / Site Prep: Informed consent provided, Consent from patient Procedural Sedation/Analgesia: Sedation: Propofol Joules: 50 Procedure Successful: Yes Post-Procedure Rhythm: Normal sinus rhythm Post-Procedure / Complications: No complications, Condition improved, Tolerated procedure well, Patient stable Proced Mod Sedation/Analgesia Time: 12:00 Procedure Performed by: ED physician Sedation Time: 10 - 15 min Consent / Setup: Informed consent provided, Consent from patient Indication: Other (cardioversion) Preparation: monitoring engineer applied, Pulse oximeter applied, Constant attendance, IV access established, Eval last meal time, Supplemental oxygen, Procedure explained, Suction available, End tidal CO2 mon applied VS Prior to Procedure: O2 saturation normal, Blood pressure normal, Respiratory rate normal Mallampati: Class & Anatomy: 2 top tonsil/uvula/palate Airway Exam: Normal facial anatomy, Difficult neck anatomy CVS/Resp Exam: Normal breath sounds Neuro Exam: Alert Sedation: Sedation: Propofol ASA Classification: 2 mild systemic disease Response During Procedure: Handled secretions adeq, Maintained airway well, Oxygenation stable, Sedation appropriate, Vital signs stable Complications During/After: None Reversal: None required Mental Status After Procedure: Alert, Oriented X3 Post-Procedure: Alert prior to discharge Attestation: I performed procedure, I performed sedation Re-Eval/Medical Decision Med Decision/Clinical Course 46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 That up to go to the bathroom and noted the fluttering around 6 AM. Head significant chest pain 3 weeks ago follow-up echocardiogram with some inferior dyskinesis and nuclear medicine stress test that did not suggest acute ischemia were done. Rate was in the 150 range 6 mg of adenosine was used to confirm flutter waves. Care was reviewed with cardiology. Decision made to proceed with cardioversion. 120 mg subcutaneous Lovenox is given informed consent is obtained. With total of 80 mg of propofol and a single 50 mg J shock was converted to sinus rhythm. Stable on discharge. Recommended daily aspirin. Will follow up with Dr. Weldon. Return for recurrent symptoms. Time of Eval: 11:03 Patient Status: Condition unchanged Re-Evaluation/Progress Note: Pt rechecked. All labs look normal. Plan to consult with cardiology. Time of Eval: 11:56 Patient Status: Condition unchanged Re-Evaluation/Progress Note: Pt is sedated and shocked. Propohal sedation for cardioversion. Started at 40 with propophol. Pt responded to procedure well. Time of Eval: 12:36 Patient Status: Condition improved Re-Evaluation/Progress Note: Pt is now awake, tolerated the procedure well and all symptoms are resolved. He requests lunch and will be discharged. F/U and RTER warnings given. All questions addressed. Consultation : Referral / Consult Name: Lee De Paz MD Consulted With: Cardiology Call Returned at: 11:32 Supervisor Shuttle Fitting: Agrees with eval, Agrees with plan Note: Agreed with plan to shock patient. Will administer dose of Lovenox. Counseled Regarding: Diagnosis, Lab results, Need for follow-up, When/why to return to ED Discharge & Departure Primary Impression: Atrial flutter Disposition: Home Discharge Condition All VS Reviewed: Yes Condition: Stable Additional Instructions: the initial blood work up was unremarkable today. Your cardioversion today was successful at 50J and a single shock. Please make an appointment with Dr. Christie in the next couple weeks for follow up care. I recommend a daily dose of aspirin. Please return to the Emergency Department if you experience any new or worsening symptoms. 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 Referrals: Kinga Vasquez (PCP) Crit Care Except Billable Proc Time Spent: 30-74 minutes Services Performed: Patient management by me, Time spent at bedside, Reviewing test results, Reviewing imaging, Discussing patient care, Documentation in record, Time with fam/surrogate Scribe Attestation Portion of this note were transcribed by Chichi Farr. I, Dr. Hilliard, personally performed the history, physical exam, and medical decision-making: I reviewed and confirmed the accuracy for the information in the transcribed note. Signed by: irvin Merino, 04/30/16 1300 copies to: Kinga Vasquez Shawna L MD Apr 30, 2016 08:09 CHICHI FARR Apr 30, 2016 11:03
[2016-04-30 08:22] LABS: BASOPHILS % (AUTO) 0.7 % (0-3); EOSINOPHILS % (AUTO) 8.2 % (0-5); MONOCYTES % (AUTO) 9.3 % (4-12); Mean Corpuscular Hemoglobin 28.5 pg (27.0-35.0); Mean Corpuscular Volume 84.2 fL (81-100); NEUTROPHILS % (AUTO) 48.9 % (40-74); Platelet Count 299 bil/L (150-400)
[2016-04-30 08:43] LABS: TROPONIN T 0.01 ug/L (0.0-0.011)
[2016-04-30 08:55] LABS: Magnesium 1.9 mg/dL (1.6-2.6)
[2016-04-30 09:07] VITALS: BP 122/77; PULSE 146; RESP 16; O2SAT 98
--- NOTE | 2016-04-30 10:17 | DRSVH ---
PROCEDURE: X-RAY CHEST ONE VIEW, PORTABLE ([id number]) INDICATIONS: CHEST PAIN TECHNIQUE: One view of the chest was acquired. COMPARISON: [facility], CR, XR CHEST 1VW (PORTABLE), 04/08/2016, 11:01. FINDINGS: Surgical changes and devices: None. Lungs and pleura: No pleural effusions or pneumothorax. Lungs are clear. Mediastinum: Mediastinal contours appear normal. Heart size is normal. Bones and chest wall: No suspicious bony lesions. Overlying soft tissues appear unremarkable. IMPRESSION: No acute cardiopulmonary disease. Dictated by: Doe Jennings [facility] Interpreted: Mitchell Brown MD on 04/30/2016 at 10:16 Transcribed by: ADELAIDA on 04/30/2016 at 10:16 Approved by: Mitchell Brown M.D. on 04/30/2016 at 17:46
[2016-04-30] MEDS ORDERED: Adenosine 3 mg/mL 2 mL Inj IVPUSH ONE ×2 (10:40)
[2016-04-30 11:08] VITALS: BP 114/76; PULSE 145; RESP 24; O2SAT 99
[2016-04-30] MEDS ORDERED: Propofol 10 mg/mL 20 mL Inj IVPUSH ONE (11:35)
[2016-04-30 11:57] VITALS: BP 131/71; PULSE 147; RESP 17; O2SAT 99
[2016-04-30 12:15] VITALS: BP 131/98; PULSE 75; RESP 14; O2SAT 98
[2016-04-30] MEDS ORDERED: Adenosine 3 mg/mL 2 mL Inj ONE (12:46)
[2016-04-30] MEDS ORDERED: Propofol 10 mg/mL 20 mL Inj ONE (12:47)
[2016-04-30 13:43] VITALS: BP 120/86; PULSE 77; RESP 18; O2SAT 98
[2016-06-03] MEDS ORDERED: WARF4TAB6 PO (17:47)
[2016-06-03] MEDS ORDERED: LEVO125T2 PO (17:47)
[2016-06-03] MEDS ORDERED: AMPH20TA5 PO (17:47)
== END 2016-04-30 13:54 | disposition home or self-care (01) ==
LOC: SED 07:26
DX: I48.92 Unspecified atrial flutter (principal); E78.5 Hyperlipidemia, unspecified
CPT/HCPCS: 36415; 71010; 80053; 83735; 84484; 85025; 92960; 93005; 94799; 96372; 96374; 99291; J0153; J1650

== ENCOUNTER 2016-05-18 16:00 | Emergency (ER) | payer OTHER ==
[~2016-05-18] VITALS: Ht 185.4 cm; Wt 136.8 kg
[2016-05-18 16:05] VITALS: BP 113/69; PULSE 154; RESP 28; O2SAT 99
[2016-05-18 16:31] LABS: BASOPHILS % (AUTO) 0.6 % (0-3); EOSINOPHILS % (AUTO) 5.6 % (0-5); MONOCYTES % (AUTO) 8.9 % (4-12); Mean Corpuscular Hemoglobin 28.7 pg (27.0-35.0); Mean Corpuscular Volume 84.7 fL (81-100); NEUTROPHILS % (AUTO) 51.2 % (40-74); Platelet Count 352 bil/L (150-400)
--- NOTE | 2016-05-18 16:43 | ED.REPORT ---
HPI-Chest Pain 40 and Over Date of Service May 18, 2016 ED Provider: Marty Peoples MD Pt is a 46 year old male with a hx of Afib presenting to the ED complaining of chest pain and a rapid heart rate onset at 1900 last night when he stood up. Associated symptoms include left arm, neck, shoulder, and jaw pain and diaphoresis. He also reports that at 1430 today after taking a nap the shoulder and neck aching began. He states that he has had similar symptoms like this once before. Denies nausea. Pt was cardioverted one time, on April 30, 2016. Nursing Notes Stated Complaint: CHEST PAIN, RAPID HEART RATE Chief Complaint: Chest Pain Nursing Notes Reviewed: Yes Allergies: Coded Allergies: No Known Drug Allergies (Verified Allergy, Unknown, 05/18/16) Scheduled Allopurinol (Allopurinol) 300 Mg Tablet 600 MG PO BID Citalopram (Citalopram) 40 Mg Tablet 40 MG PO DAILY Dextroamphetamine/Amphetamine (Amphetamine Mixed Salts) 20 Mg Tablet 40 MG PO BID Levothyroxine (Levothyroxine) 100 Mcg Tablet 100 MCG PO dailyac Omeprazole (Omeprazole) 40 Mg Capsule.dr 40 MG PO BID Rivaroxaban (Xarelto) 15 Mg Tablet 15 MG PO DAILY Scheduled PRN Colchicine (Colchicine) 0.6 Mg Tablet 0.6 MG PO PRN gout outbreak Tramadol (Ultram) 50 Mg Tablet 50 MG PO Q4H PRN PRN For Mild Pain General Time Seen by MD: 16:41 Chief Complaint Chest pain Hx Obtained From: Patient Arrived By: Walk-in Sudden in Onset?: Yes Onset Occurred: Yesterday Symptom Duration: Since onset Location: : Chest left: Jaw: Neck: Shoulder left Quality: Aching, Painful Severity: Current: Moderate Severity: Maximum: Moderate Recent Healthcare: No recent hospitalization, Recent doctor visit Similar Sx Previous: Yes Past Medical History Past Medical History Loren-Nino Syndrome Atrial flutter Reports: Hyperlipidemia Past Surgical History denies Smoking History Never Smoker Social History CC nurse at [employer] Alcohol Use: Denies alcohol use Drug Use: Denies drug use Other Social History: Good social support Ambulatory Status Independent Review of Systems Cardiovascular: Reports: Chest pain, Palpitations GI: Denies: Nausea Musculoskeletal: Reports: Joint pain, Neck pain Skin: Reports Diaphoresis Complete sys rev & neg: except as marked. Physical Exam Initial Vital Signs Vital Signs (First) Date Time Temp Pulse Resp B/P Pulse Ox O2 Delivery O2 Flow Rate FiO2 05/18/16 16:05 36.7 154 28 113/69 99 Room Air Initial VS: Reviewed Head / Eyes: Atraumatic, Normocephalic, PERRL ENT: Mucous membranes moist, Conjunctiva normal, No scleral icterus Neck: Supple, Non-tender, Full range of motion Extremities: Vascular intact, Neuro intact, No swelling, No tenderness Skin: Warm, Dry, No cyanosis Neurologic: Alert, Oriented, Nonfocal Psychiatric: Mood/affect normal, Behavior normal, Normal thought content General/Constitutional: Awake, Alert, No acute distress, Well appearing Respiratory / Chest: Breath sounds NL, Breath sounds = bilat, No respiratory distress, No rales, No rhonchi, No wheezing, No stridor, No chest tenderness Cardiovascular: Regular rhythm, Heart sounds NL Heart Rate / Rhythm: Positive: Tachycardia Heart rate consistently in the 150s. Abdomen: Atraumatic, Soft, Non-tender Interpretation & Diagnostics Lab Results Interpretation Result Diagram: 05/18/16 1621 05/18/16 1621 Test 05/18/16 16:21 White Blood Count 9.0th/mm3 (3.8-10.1) Red Blood Count 5.30mil/mm3 (4.40-5.80) Hemoglobin 15.2g/dL (13.8-17.2) Hematocrit 44.9% (41.0-50.0) Mean Corpuscular Volume 84.7fL (81-100) Mean Corpuscular Hemoglobin 28.7pg (27.0-35.0) Mean Corpuscular Hemoglobin Concent 33.9% (32.0-37.0) Red Cell Distribution Width 14.8% (12.3-15.4) Platelet Count 352bil/L (150-400) Neutrophils (%) (Auto) 51.2% (40-74) Lymphocytes (%) (Auto) 33.3% (14-46) Monocytes (%) (Auto) 8.9% (4-12) Eosinophils (%) (Auto) 5.6% (0-5) Basophils (%) (Auto) 0.6% (0-3) Sodium Level 140mEq/L (134-144) Potassium Level 4.3mEq/L (3.5-5.2) Chloride Level 101mEq/L (97-108) Carbon Dioxide Level 24mmol/L (18-29) Blood Urea Nitrogen 11mg/dL (6-24) Creatinine 1.34mg/dL (0.76-1.27) Estimat Glomerular Filtration Rate 62mL/min (>59) Glucose Level 142mg/dL (60-99) Calcium Level 9.0mg/dL (8.5-10.1) Magnesium Level 2.2mg/dL (1.6-2.6) Total Bilirubin 0.6mg/dL (0.0-1.2) Aspartate Amino Transf (AST/SGOT) 18U/L (0-50) Alanine Aminotransferase (ALT/SGPT) 18U/L (0-44) Alkaline Phosphatase 93U/L (25-150) Troponin T < 0.010ug/L (0.0-0.011) Total Protein 7.2g/dL (6.4-8.4) Albumin 3.8g/dL (3.4-5.0) ECG Interpretation ECG Interpretation: Atrial flutter with 2:[address] depressions. Time: 16:12 Interpreted by: ED physician X-Ray Chest Interpretation Chest Xray Interpretation: IMPRESSION: No acute cardiopulmonary findings. Dictated by: Kimmie Jordan M.D. on 05/18/2016 at 17:11 View: Portable, 1 view Interpretation / Wet Read by: Interpret - Radiologist Procedures Electrical Cardioversion Electrical Cardioversion: First shock 50 J. Synchronized extra shock, 100 J. Time: 17:33 Procedure Performed by: ED physician Indication: Atrial flutter Consent / Setup / Site Prep: Consent from patient, Time-out performed, Placed on oxygen, Placed on pulse oximeter, Place on environmental monitoring specialist, Hand hygiene observed, Stand sterile technique Procedural Sedation/Analgesia: Sedation: Propofol Joules: 50, 100 Post-Procedure Rhythm: Normal sinus rhythm Post-Procedure / Complications: No complications, Condition improved, Tolerated procedure well, Patient stable Proced Mod Sedation/Analgesia Time: 17:33 Procedure Performed by: ED physician Sedation Time: 10 - 15 min (12) Consent / Setup: Consent from patient, Time-out performed, Hand hygiene observed, Stand sterile technique, Position supine Indication: Other (Cardioversion) Preparation: alarm security or surveillance monitor applied, Pulse oximeter applied, Constant attendance, IV access established, Supplemental oxygen, Procedure explained, Suction available, End tidal CO2 mon applied Airway Exam: Normal facial anatomy CVS/Resp Exam: Normal breath sounds Neuro Exam: Alert, No acute distress, Responsive Sedation: Sedation: Propofol ASA Classification: 1 normal healthy patient Response During Procedure: Handled secretions adeq, Maintained airway well, Oxygenation stable, Sedation appropriate, Vital signs stable Attestation: I performed procedure, I performed sedation Re-Eval/Medical Decision Time of Eval: 17:11 Patient Status: Condition improved Re-Evaluation/Progress Note: Discussed plan to consult with Dr. Manzanares about cardioversion. Time of Eval: 17:20 Patient Status: Condition improved Re-Evaluation/Progress Note: Patient agrees with plan for cardioversion. Time of Eval: 17:23 Patient Status: Condition improved Re-Evaluation/Progress Note: Pt consents to the cardioversion. Risks and benefits explained. Time of Eval: 17:33 Patient Status: Condition improved Re-Evaluation/Progress Note: Cardioversion performed. Pt tolerated procedure well. Time of Eval: 17:46 Patient Status: Condition improved Re-Evaluation/Progress Note: Pt awake from the Propofol. Condition improved. Pt now in normal sinus rhythm and states that all of his symptoms have resolved. Consultation : Referral / Consult Name: Ej Manzanares MD Consulted With: Cardiology Call Returned at: 17:12 Note: Cardiovert him and put him on Xarelto or another anticoagulant afterwards. Follow up with cardiology. Counseled Regarding: Diagnosis, Lab results, Need for follow-up, When/why to return to ED Discharge & Departure Primary Impression: Atrial flutter Atrial flutter type: unspecified Qualified Code: I48.92 - Unspecified atrial flutter Disposition: Home Discharge Condition All VS Reviewed: Yes Condition: Improved Patient Instructions: Atrial Flutter (ED) Additional Instructions: We had to shock you twice to get your heart back into a normal rhythm. You required only 80 mg of propofol. You received Lovenox today but tomorrow you should start taking another anticoagulant. Dr. Manzanares recommended that you take this for at least a month. I prescribed Xarelto 15 mg daily. If there is any trouble getting this medication, call your doctor's office tomorrow for a replacement. You can also call us tomorrow here at the ER. If your symptoms recur, please return to the emergency department. Follow-up with Dr. Wise in the coming 1-2 weeks. Referrals: Kinga Vasquez (PCP) Jose Torres MD Attestation Portions of this note were transcribed by Sharyn Clark. I, Dr. Peoples personally performed the history, physical exam and medical decision-making; I reviewed and confirmed the accuracy of the information in the transcribed note. Signed by: Rosio Perkins, 05/18/2016 and [id number]. copies to: Jose Torres MD; Kinga Vaqsuez Kirk H MD May 18, 2016 16:42 SHARYN CLARK May 18, 2016 16:50
[2016-05-18] MEDS ORDERED: Diltiazem 5 mg/mL 5 mL Inj IVPUSH ONE (16:50)
[2016-05-18 17:08] LABS: TROPONIN T < 0.010 ug/L (0.0-0.011)
--- NOTE | 2016-05-18 17:13 | DRSVH ---
PROCEDURE: X-RAY CHEST ONE VIEW, PORTABLE ([id number]) INDICATIONS: CHEST PAIN TECHNIQUE: One view of the chest was acquired. COMPARISON: None. FINDINGS: Surgical changes and devices: None. Lungs and pleura: No pleural effusions or pneumothorax. Lungs are clear. Mediastinum: Mediastinal contours appear normal. Heart size is normal. Bones and chest wall: No suspicious bony lesions. Overlying soft tissues appear unremarkable. IMPRESSION: No acute cardiopulmonary findings. Dictated by: Kimmie Jordan M.D. on 05/18/2016 at 17:11 Approved by: Kimmie Jordan M.D. on 05/18/2016 at 17:11
[2016-05-18 17:16] LABS: Magnesium 2.2 mg/dL (1.6-2.6)
[2016-05-18 17:19] VITALS: BP 100/79; PULSE 150; RESP 16; O2SAT 97
[2016-05-18] MEDS ORDERED: Propofol 10 mg/mL 20 mL Inj IVPUSH ONE (17:20)
[2016-05-18] MEDS ORDERED: RIVA15TA PO (17:31)
[2016-05-18 18:28] VITALS: BP 108/72; PULSE 68; RESP 11; O2SAT 97
[2016-06-03] MEDS ORDERED: LEVO125T2 PO (17:47)
[2016-06-03] MEDS ORDERED: AMPH20TA5 PO (17:47)
[2016-06-03] MEDS ORDERED: WARF4TAB6 PO (17:47)
== END 2016-05-18 18:56 | disposition home or self-care (01) ==
LOC: SED 16:00
DX: I48.92 Unspecified atrial flutter (principal); E78.5 Hyperlipidemia, unspecified; Z86.79 Personal history of other diseases of the circulatory system
CPT/HCPCS: 36415; 71010; 80053; 83735; 84484; 85025; 92960; 93005; 96372; 96374; 96375; 99285; J1650

== ENCOUNTER 2016-06-04 00:59 | Day surgery (SDC) | payer OTHER ==
[~2016-06-04] VITALS: Ht 185.4 cm; Wt 138.3 kg
[2016-06-04] VITALS (12 sets, daily range): BP systolic 113–142; BP diastolic 67–85; PULSE 53–67; RESP 13–19; O2SAT 89–97
[~2016-06-04 00:59] MED LIST changes: +AMPH20TA5 PO; -DEXT20TA8 PO; -LEVO100T6 PO; +LEVO125T2 PO; -OMEP40CA36 PO; -TRAM-14 PO; +WARF4TAB6 PO
[2016-06-04] MEDS ORDERED: Rocuronium 10 mg/mL 5 mL Inj ONE (01:00)
[2016-06-04] MEDS ORDERED: Glycopyrrolate 0.2 MG/ML 1mL Inj ONE (01:00)
[2016-06-04] MEDS ORDERED: Dexamethasone 4 mg/mL Inj ONE (01:00)
[2016-06-04] MEDS ORDERED: Succinylcholine Chloride 20 mg/mL 5 mL Inj ONE (01:00)
[2016-06-04] MEDS ORDERED: Propofol 10,000 mCg/mL 20 mL Inj ONE (01:00)
[2016-06-04] MEDS ORDERED: MetoCLOpramide 5 mg/mL 2 mL Inj ONE (01:00)
[2016-06-04] MEDS ORDERED: Neostigmine 1 mg/mL 10 mL Inj ONE (01:00)
[2016-06-04] MEDS ORDERED: Ondansetron 2 mg/mL 2 mL Inj ONE (01:00)
[2016-06-04] MEDS ORDERED: fentaNYL-PF 50 mCg/mL 2 mL Inj ONE (01:00)
[2016-06-04] MEDS ORDERED: Lactated Ringer's 1,000 ML IV SCH ×2 (05:00→07:51)
[2016-06-04] MEDS ORDERED: 0.9% Sodium Chloride 1,000 ML IV SCH (06:10)
[2016-06-04 06:51] LABS: BASOPHILS % (AUTO) 0.3 % (0-3); EOSINOPHILS % (AUTO) 3.1 % (0-5); MONOCYTES % (AUTO) 6.9 % (4-12); Mean Corpuscular Hemoglobin 28.8 pg (27.0-35.0); Mean Corpuscular Volume 85.2 fL (81-100); NEUTROPHILS % (AUTO) 62.7 % (40-74); Platelet Count 318 bil/L (150-400)
[2016-06-04 07:09] LABS: INR 1.18 ratio
[2016-06-04] MEDS ORDERED: Lactated Ringer's 500 ML IV PRN (07:51)
--- NOTE | 2016-06-04 07:51 | PCM.HPANE ---
Patient Data Surgeon Admitting Provider: Attending Provider:Jose Torres MD Primary Care Physician:Kinga Vasquez Other Provider:Alex Randolph Anesthesia Reason for Visit Unspecified Atrial Flutter Ht/WT & BMI Height (Feet): 6 Height (Inches): 1.00 Weight (Kilograms): 138.300 Body Mass Index 40.41 Allergies Coded Allergies: No Known Drug Allergies (Verified Allergy, Unknown, 05/18/16) Past Anesthesia History Anesthesia History: Denies:: Abnormal Airway, Anesthesia Reactions, Difficult Intubation, Fam Anesthesia Reaction, Fam Malignant Hypertherm, Malignant Hyperthermia Diabetes History Hx Diabetes?: No MRSA MRSA: No Medications Reported Medications Warfarin Sodium 4 Mg Tablet4 Mg PO DAILY 30 Days Ref 0 06/03/16 Levothyroxine (Synthroid)125 Mcg [id number] Mcg PO DAILY Ref 0 06/03/16 Amphet Asp/Amphet/D-Amphet (Adderall)20 Mg Szrzbg50 Mg PO DAILY Ref 0 06/03/16 Citalopram 40 Mg Tmyylw53 Mg PO DAILY 30 Days Ref 0 04/08/16 Allopurinol 300 Mg Gvqmgw805 Mg PO BID Ref 0 04/08/16 Colchicine 0.6 Mg Tablet0.6 Mg PO PRN gout outbreak 04/08/16 Discontinued Reported Medications Dextroamphetamine/Amphetamine (Amphetamine Mixed Salts)20 Mg Cvnfnd06 Mg PO BID Ref 0 04/08/16 Omeprazole 40 Mg Capsule.dr40 Mg PO BID Ref 0 04/08/16 Levothyroxine 100 Mcg Qwbdnp251 Mcg PO dailyac For Thyroid Replacement Ref 0 04/08/16 Discontinued Scripts Rivaroxaban (Xarelto)15 Mg Hjpucc30 Mg PO DAILY #30 TABLET Prov:Marty Peoples MD 05/18/16 Tramadol (Ultram)50 Mg Gbrmpm93 Mg PO Q4H PRN For Mild Pain #10 TABLET Prov:Ede Benoit DO 04/09/16 History History of ENT Problems?: No HEENT History: Positive for:: Dysphagia Denies:: Abnormal Airway Difficult Intubation Hearing Problem Denture Type: Partial- Upper Hx of Heart Problems?: Yes Cardiovascular History: Positive for:: Cardiac Surgery (cardioversions x 2) Irregular Heartbeat (atrial flutter) Denies:: AICD Atrial Fibrillation Chest Pain Congestive Heart Failure Hypertension Pacemaker Valvular Heart Disease Hx of Respiratory Problem?: No Respiratory History: Denies:: Asthma COPD Cough Hemoptysis Pneumonia Tuberculosis Hx Neurologic Problems?: No Neurological History: Denies:: CVA Dementia Seizures Hx of GI Problems?: Yes Gastrointestinal History: Positive for:: Gastroesphageal Reflux (OMEPRAZOLE) Hiatal Hernia Denies:: Cirrhosis Diverticulitis Rectal Bleeding Hx of Problems?: No Male Hx: Denies:: Prostate Problems Hx Musculoskeletal Problems?: No Musculoskeletal History: Positive for:: Back Injury (2007 work related) Denies:: Joint Replacement Hx of Psycho/Social Problems?: Yes Psycho Social History: Positive for:: Hx Depression (WELL CONTROLLED) Denies:: Anxiety Hx Surgeries?: Yes (R knee surgery) Hx Any Other Health Problems?: Yes History Blood Transfusions: Positive for:: Accept Blood Products? Denies:: Blood Transfusions Hx Diabetes: No Hx Alcohol Use: Yes (2/ year)Hx Substance Use: No Smoking Status: Never Smoker Stop/Bang Risk Assessment Category Category 1A: Patient has history of documented sleep apnea, and HAS NOT received any narcotic, sedative or anesthesia administration during this stay. Category 1B: Patient has history of documented sleep apnea, and HAS received any narcotic , sedative or anesthesia administration during this stay Category 2: Patient has SUSPECTED Obstructive Sleep Apnea, and HAS received any narcotic , sedative or anesthesia administration during this stay. Category 3: Patient has SUSPECTED Obstructive Sleep Apnea and HAS NOT received narcotic, sedative or anesthesia administration during this stay. Category 4: Outpatient in Procedural Areas with known sleep apnea or who screen positive for High Risk via the STOP/BANG questionnaire. Exam Exam Vital Signs Vital Signs Date Time Temp Pulse Resp B/P Pulse Ox O2 Delivery O2 Flow Rate FiO2 06/04/16 06:43 36.9 67 13 142/85 97 Room Air General Appearance: Alert, Oriented X3, Cooperative, No Acute Distress HEENT/AIRWAY: MP 2 Lungs: Clear to Auscultation Heart: Exam Unremarkable Meds/Labs/Diagnostics Labs Test 06/04/16 06:30 White Blood Count 9.5th/mm3 (3.8-10.1) Red Blood Count 4.80mil/mm3 (4.40-5.80) Hemoglobin 13.8g/dL (13.8-17.2) Hematocrit 40.9% (41.0-50.0) Mean Corpuscular Volume 85.2fL (81-100) Mean Corpuscular Hemoglobin 28.8pg (27.0-35.0) Mean Corpuscular Hemoglobin Concent 33.7% (32.0-37.0) Red Cell Distribution Width 14.9% (12.3-15.4) Platelet Count 318bil/L (150-400) Neutrophils (%) (Auto) 62.7% (40-74) Lymphocytes (%) (Auto) 26.8% (14-46) Monocytes (%) (Auto) 6.9% (4-12) Eosinophils (%) (Auto) 3.1% (0-5) Basophils (%) (Auto) 0.3% (0-3) Prothrombin Time 12.7sec (8.1-12.5) Prothromb Time International Ratio 1.18ratio Sodium Level 141mEq/L (134-144) Potassium Level 3.9mEq/L (3.5-5.2) Chloride Level 101mEq/L (97-108) Carbon Dioxide Level 22mmol/L (18-29) Blood Urea Nitrogen 13mg/dL (6-24) Creatinine 1.40mg/dL (0.76-1.27) Estimat Glomerular Filtration Rate 59mL/min (>59) Glucose Level 101mg/dL (60-99) Calcium Level 9.7mg/dL (8.5-10.1) Plan Impression Patient chart reviewed, patient interviewed and anesthestic plan with risks, benefits, and alternatives discussed, and informed consent obtained. ASA Physical Status: ASA3 Severe Disease (BMI>40, aflutter) Anesthetic Plan: GA Bene/Risks/Altern/Consents: Yes HP Complete Prior to Induction: Yes Jose Eagle MD Jun 04, 2016 07:51
[2016-06-04] MEDS ORDERED: Phenylephrine 10,000 mCg/mL Inj IVPUSH PRN (07:55)
[2016-06-04] MEDS ORDERED: Dexamethasone 4 mg/mL Inj IVPUSH PRN (07:55)
[2016-06-04] MEDS ORDERED: EPHEDrine Sulfate 50 mg/mL Inj IVPUSH PRN (07:55)
[2016-06-04] MEDS ORDERED: MetoCLOpramide 5 mg/mL 2 mL Inj IVPUSH PRN (07:55)
[2016-06-04] MEDS ORDERED: Ondansetron 2 mg/mL 2 mL Inj IVPUSH PRN (07:55)
[2016-06-04] MEDS ORDERED: HYDROmorphone 1 mg/mL Inj IVPUSH PRN (07:55)
[2016-06-04] MEDS ORDERED: fentaNYL-PF 50 mCg/mL 2 mL Inj IVPUSH PRN (07:55)
[2016-06-04] MEDS ORDERED: Heparin 1,000 Unit/mL 10 mL Inj ONE ×2 (07:58→08:11)
[2016-06-04] MEDS ORDERED: 0.9% Sodium Chloride 1,000 ML ONE (07:58)
--- NOTE | 2016-06-04 12:03 | PROCED ---
[address] [address] PROCEDURE NOTE PATIENT: JOSEFINA ANDRADE : 1970 MR#: [id number] ADMIT: 06/04/2016 JOB ID: [id number] DATE OF SERVICE: 06/04/2016 PREOPERATIVE DIAGNOSIS(ES): Symptomatic drug refractory recurrent paroxysmal atrial flutter. POSTOPERATIVE DIAGNOSIS(ES): Symptomatic drug refractory recurrent paroxysmal atrial flutter, status post cavotricuspid isthmus ablation. PROCEDURES PERFORMED: 1. Comprehensive electrophysiology study. 2. Three-dimensional electroanatomic mapping using the CARTO-3 system. 3. Atrial flutter ablation (cavotricuspid isthmus ablation; atrial ablation). 4. Left atrial pacing recording via the coronary sinus catheter. 5. Fluoroscopy. SURGEON: Jose Torres MD, electrophysiology attending. PROFILE STITCHING MACHINE OPERATOR: 1. Camilo Yi. 2. Erick Stahl PA-C. ANESTHESIA: General endotracheal anesthesia was undertaken for this case. INDICATION: The patient is a pleasant 46-year-old man with a structurally normal heart and recurrent atrial flutter requiring cardioversion. After discussion of the risks and benefits of catheter-based mapping and ablation, he opted to proceed. PROCEDURE DESCRIPTION: Following informed signed consent, the patient was taken to the EP laboratory in a fasting nonsedated state where he was prepped in usual sterile fashion. The right inguinal region was infiltrated with 1% lidocaine. Then, using modified Seldinger technique, one 8 and two 7-Persian sheaths were inserted into the right femoral vein. Under fluoroscopic guidance, a deflectable decapolar catheter was inserted into the coronary sinus with most proximal bipoles at the os of the sinus. Engaging the CS was quite difficult. Ultimately, the CS was placed following 3D mapping and under the guidance of mapping. A 20 pole LiveWire catheter was used to encircle the tricuspid anulus. A J curve Smart Touch irrigated ablation catheter was brought to the field. with three-dimensional electroanatomic map of the right atrial and tricuspid anulus and cavotricuspid isthmus. The patient was in sinus rhythm at the onset of the case. Pacing was undertaken from the coronary sinus os while monitoring the atrial activation pattern on the LiveWire catheter. A linear series of ablations was performed from the ventricular to the IVC aspect of the cavotricuspid isthmus. Ultimately, medial to lateral block was noted with a change in activation of the atrial pattern on the LiveWire catheter. A lateral to medial block was confirmed. A 20-30 minute waiting period was undertaken during which bidirectional block was confirmed. During the course of this study, we did complete a comprehensive electrophysiology study with right atrial pacing recording, right ventricular pacing recording, His bundle recording, left atrial pacing recording via the coronary sinus catheter. All catheters and sheaths were removed. Manual pressure was held for hemostasis. The patient was taken to the [facility] for monitoring, bedrest, and discharge. COMPLICATIONS: None. ESTIMATED BLOOD LOSS: 5-10 cc. FINDINGS: 1. Baseline rhythm is sinus with an RR interval of 1074 msec, MO 151 msec, QRS 92 msec, QT 442 msec. 2. Intracardiac intervals: AH interval 69 msec, HV 45 msec. Post ablation, those intervals are 71 msec and 42 msec, respectively. 3. Retrograde conduction, atrial activation was concentric. VA Wenckebach is less than 280 msec. 4. Cavotricuspid isthmus ablation as described above with bidirectional block. Specifically, transisthmus time was 138 msec in both directions. IMPRESSION: Successful cavotricuspid isthmus ablation for recurrent atrial flutter. PLAN: 1. Bedrest x4 hours. 2. Continue warfarin with a 10 mg dose to be given today and an INR check to be done on Thursday. 3. Follow up with Erick Stahl in clinic in four weeks. ATTENDING STATEMENT: Jose Torres MD, electrophysiology attending, was present for and supervised/performed all aspects of this procedure.
--- NOTE | 2016-06-04 12:35 | PCM.ANEP1 ---
Post Anesthesia Phase 1 PACU Phase 1 Assessment Vital Signs Vital Signs Date Time Temp Pulse Resp B/P Pulse Ox O2 Delivery O2 Flow Rate FiO2 06/04/16 12:16 Room Air 06/04/16 12:00 58 15 124/73 96 Nasal Cannula 2.00 06/04/16 11:44 55 16 121/72 96 Nasal Cannula 4.00 06/04/16 11:31 56 17 123/74 95 Nasal Cannula 2.00 06/04/16 11:31 56 17 123/74 06/04/16 11:15 61 17 124/73 94 Nasal Cannula 4.00 06/04/16 11:00 53 17 123/76 94 Nasal Cannula 4.00 06/04/16 10:45 54 15 118/67 91 Nasal Cannula 4.00 06/04/16 10:40 37.0 53 18 117/70 89 Nasal Cannula 2.00 06/04/16 10:35 58 18 113/75 90 Nasal Cannula 2.00 06/04/16 06:43 36.9 67 13 142/85 97 Room Air Anesthetic Administered: GA Level of Alertness: Awake, talking DIAZ's with Equal Strength: Yes Pain: No Nausea or Vomiting: No Oxygen Delivery: Room Air Lungs: Clear to Auscultation Dermatome Level: Full Sensation Jose Eagle MD Jun 04, 2016 12:35
--- NOTE | 2016-06-04 12:35 | PCM.ANEP2 ---
Post Anesthesia Evaluation ASA/CMS Post Anesthesia VS in Patient's Normal Range?: Yes Resp Stable; Airway Patent?: Yes CV Function & Hydration Stable: Yes Mental Status Recovered?: Yes Pain control Satisfactory?: Yes N/V Control Satisfactory?: Yes Jose Eagle MD Jun 04, 2016 12:35
[2016-06-04] MEDS ORDERED: WARF6TAB6 PO (13:39)
--- NOTE | 2016-06-04 14:40 | NUR ---
Patient has been off bedrest as of 14:15. He has ambulated to bathroom and back, voided. Right groin remains stable, discharge instructions reviewed with patient and he is sent home ambulatory.
== END 2016-06-04 23:59 | disposition home or self-care (01) ==
LOC: SOUO 00:59
PROVIDERS: ATTEND Internal Medicine Cardiovascular Disease
DX: I48.91 Unspecified atrial fibrillation (principal); I48.92 Unspecified atrial flutter; Z79.01 Long term (current) use of anticoagulants; E03.9 Hypothyroidism, unspecified; F98.8 Other specified behavioral and emotional disorders with onset usually occurring in childhood and adolescence; M10.9 Gout, unspecified; F32.9 Major depressive disorder, single episode, unspecified; K21.9 Gastro-esophageal reflux disease without esophagitis
CPT/HCPCS: 36415; 80048; 85025; 85610; 93005; 93613; 93621; 93653; 99152; 99153; C1730; C1731; C1732; C1893; J0330; J1100; J1644; J1885; J2405; J2710; J2765; J3010; J7030